=== PATIENT | male | born 1980 | race Hispanic/Latino ===

== ENCOUNTER 2017-05-17 06:49 | Emergency (ER) | payer OTHER ==
[~2017-05-17] VITALS: Ht 157.5 cm; Wt 68.2 kg
[2017-05-17 07:55] VITALS: BP 134/87
[2017-05-17] MEDS ORDERED: NAPROSYN500 MG PO (08:06)
== END 2017-05-17 09:17 | disposition home or self-care (01) | DRG 552 ==
LOC: ED 06:49
DX: S16.1XXA Strain of muscle, fascia and tendon at neck level, initial encounter (principal); M54.5 Low back pain; V53.6XXA Passenger in pick-up truck or van injured in collision with car, pick-up truck or van in traffic accident, initial encounter; Y92.414 Local residential or business street as the place of occurrence of the external cause